=== PATIENT | male | born 1950 | race African-American/Black ===

== ENCOUNTER 2023-07-26 13:44 | Emergency (ER) | payer BC ==
[~2023-07-26] VITALS: Ht 180.3 cm; Wt 86.0 kg
[2023-07-26 13:47] VITALS: O2SAT 94
[2023-07-26] MEDS: SODIUM CHLORIDE 0.9% 1000ML BAG (SEPSIS BOLUS) IV ONE (14:00)
[2023-07-26 14:49] LABS: BASOPHILS % 0.3 % (0.0-2.0); EOSINOPHILS % 0.1 % (0.0-5.0); HEMATOCRIT. 44.4 % (42.0-52.0); HEMOGLOBIN. 14.6 g/dL (14.0-18.0); LYMPHOCYTES % 11.8 % (20.0-50.0); MEAN CORPUSCULAR HEMOGLOBIN 29.4 pg (28.0-32.0); MEAN CORPUSCULAR HGB CONC 32.8 g/dL (31.0-37.0); MEAN CORPUSCULAR VOLUME 89.6 fL (80.0-94.0); MONOCYTES % 2.9 % (2.0-8.0); NEUTROPHILS % 84.9 % (40.0-76.0); RED BLOOD CELL COUNT 4.96 mill/uL (4.7-6.1); RED CELL DISTRIBUTION WIDTH 14.5 % (11.6-14.6); WHITE BLOOD COUNT 10.1 x1000/uL (4.5-11.0)
[2023-07-26 14:56] LABS: CARBON DIOXIDE 25 mEq/L (21-32)
[2023-07-26 14:57] LABS: CALCIUM 10.1 mg/dL (8.7-10.4); CHLORIDE 126 mEq/L (98-107); POTASSIUM 3.4 mEq/L (3.5-5.1)
[2023-07-26 15:00] LABS: LACTIC ACID 2.5 mmol/L (0.4-2.0)
[2023-07-26 15:02] LABS: CREATININE 1.2 mg/dL (0.6-1.3); GLUCOSE 171 mg/dL (70-105); UREA NITROGEN BLOOD 24 mg/dL (9-23)
[2023-07-26 15:03] LABS: TROPONIN I HIGH SENSITIVITY 49 ng/L (3.0-53)
[2023-07-26 15:04] LABS: ALANINE AMINOTRANSFERASE 19 IU/L (10-49); ALBUMIN 4.1 g/dL (3.2-4.8); ASPARTATE AMINOTRANSFERASE 24 IU/L (<34); BILIRUBIN TOTAL 0.9 mg/dL (0.1-1.0); DIFFERENTIAL COMMENT 1; PROTEIN TOTAL 7.7 g/dL (6.0-8.3)
[2023-07-26 15:38] LABS: SODIUM 166 mEq/L (136-145)
[2023-07-26 16:19] LABS: PLATELET 98 x1000/uL (130-400)
[2023-07-26 16:32] LABS: INR 1.2; PROTHROMBIN TIME 13.2 sec (9.6-11.0)
[2023-07-26 16:34] LABS: TROPONIN I HIGH SENSITIVITY 49 ng/L (3.0-53)
[2023-07-26 18:24] VITALS: TEMP 100.4
[2023-07-26 18:50] LABS: TROPONIN I HIGH SENSITIVITY 73 ng/L (3.0-53)
[2023-07-26 21:09] VITALS: BP 121/68; PULSE 128; RESP 39
== END 2023-07-26 21:20 | disposition hospice, home (50) ==
LOC: ER 14:48 → CANBEDREQ 17:02 → ER 21:20
DX: Z98.890 Other specified postprocedural states (principal); R06.02 Shortness of breath; Z51.5 Encounter for palliative care
CPT/HCPCS: 99291; 96360; 96361; 80053; 83605; 85025; 85610; 87040; 84484; 84145; 71045; 93005; 36415; J7030